=== PATIENT | male | born 1990 | race Caucasian/White ===

== ENCOUNTER 2017-02-18 16:06 | Emergency (ER) | payer OTHER ==
[~2017-02-18] VITALS: Ht 190.5 cm; Wt 72.7 kg
[2017-02-18 16:14] VITALS: BP 116/81; PULSE 92; RESP 17; O2SAT 97
[2017-02-18] MEDS ORDERED: TdaP Vaccine 0.5 mL Inj IM ONE (16:55)
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
[2017-02-18] MEDS ORDERED: Lidocaine Topical 2% 30 mL Jelly TOPICAL PRN (17:15)
[2017-02-18] MEDS ORDERED: Lidocaine Topical 2% 30 mL Jelly TOPICAL SCH (17:30)
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
[2017-02-18] MEDS ORDERED: oxyCODONE-Acetamin 10-325 mg Tablet PO ONE (18:50)
[2017-02-18] MEDS ORDERED: Bupivacaine 0.5%/EPI 50 mL Inj INFILTRATE PRN (18:55)
[2017-02-18] MEDS ORDERED: Bupivacaine-MPF 0.5% W/EPI 30 mL Inj INFILTRATE PRN (18:59)
[2017-02-18 20:22] VITALS: BP 114/76; PULSE 87; RESP 17; O2SAT 99
== END 2017-02-18 20:45 | disposition home or self-care (01) ==
LOC: SED 16:06
DX: S82.092A Other fracture of left patella, initial encounter for closed fracture (principal); S00.81XA Abrasion of other part of head, initial encounter; S60.512A Abrasion of left hand, initial encounter; S80.212A Abrasion, left knee, initial encounter; V86.59XA Driver of other special all-terrain or other off-road motor vehicle injured in nontraffic accident, initial encounter; Y93.89 Activity, other specified; Y92.410 Unspecified street and highway as the place of occurrence of the external cause; Y99.8 Other external cause status; F17.200 Nicotine dependence, unspecified, uncomplicated; Z23 Encounter for immunization